=== PATIENT | female | born 1960 | race Caucasian/White ===

== ENCOUNTER 2016-09-05 22:50 | Emergency (ER) | payer BC, MEDICARE ==
[~2016-09-05] VITALS: Ht 165.1 cm; Wt 90.0 kg
[~2016-09-05 22:50] MED LIST: AMITRIPTYLINE H75 M1; AMITRIPTYLINE H75 M1 PO; ANTIVERT 25MG25 MG PO; ASPIRIN 32325 MG/TAB PO; ATIVAN 1MG T1 MG/TAB PO; DEMEROL 50M50 MG/TAB PO; DEPAKOTE500 MG PO; DIABETA 2.5MG2.5 MG PO; DILAUDID 2MG TAB2 MG; FIORICET 325 MG1 TA1 PO; GLUCOPHAGE XR500 M1 PO; GLUCOPHAGE1000 MG PO; KLONOPIN 0.5MG0.5 MG PO; LAMICTAL 100MG100 MG PO; LORTAB 5/500 501 TAB; LORTAB 7.5/5001 TAB; MICRONASE1.25 MG PO; MOBIC15 MG PO; MOTRIN 800800 MG/TAB PO; MS CONTIN 330 MG/TAB; NEURONTIN300 MG/CAP PO; NORCO 325 MG-7.1 TAB PO; PERCOCET 325 MG1 TA2 PO; PHENERGAN 25 TA25 MG PO; PREDNISONE20 MG PO; RESTORIL 77.5 MG/CAP PEG; SOMA 350MG350 MG/TAB PO; XANAX 0.5MG0.5 MG PO; XANAX 1MG1 MG PO; ZOLOFT 100MG100 MG; ZOLOFT 100MG100 MG PO
[2016-09-05 23:44] VITALS: TEMP 97.5
[2016-09-06 00:20] VITALS: BP 120/64; PULSE 79
== END 2016-09-06 00:18 | disposition home or self-care (01) ==
LOC: COL.ER 22:50
DX: S93.402A Sprain of unspecified ligament of left ankle, initial encounter (principal); S80.01XA Contusion of right knee, initial encounter; S80.211A Abrasion, right knee, initial encounter; W01.198A Fall on same level from slipping, tripping and stumbling with subsequent striking against other object, initial encounter

== ENCOUNTER 2016-09-30 21:53 | Emergency (ER) | payer BC, MEDICARE ==
[~2016-09-30] VITALS: Ht 165.1 cm; Wt 84.5 kg
[2016-09-30 21:56] VITALS: TEMP 96.5
[2016-09-30 22:53] LABS: PH 5 (5-8); SQUAMOUS EPITHELIAL None Seen /hpf; URINE APPEARANCE Clear; URINE BACTERIA None Seen /hpf; URINE BILIRUBIN Negative (NEGATIVE); URINE BLOOD Negative (NEGATIVE); URINE COLOR Yellow; URINE GLUCOSE Negative (NEGATIVE); URINE KETONE Negative (NEGATIVE); URINE RBC 0-2 /hpf; URINE UROBILINOGEN Negative (NEGATIVE); URINE WBC None Seen /hpf
[2016-09-30 22:59] LABS: ACETAMINOPHEN < 10 ug/mL (10-30); ANION GAP 14 mmol/L (7-16); BLOOD UREA NITROGEN 16 mg/dL (7-17); CALCIUM 8.9 mg/dL (8.4-10.2); CARBON DIOXIDE 27 mmol/L (22-30); CHLORIDE 99 mmol/L (98-107); CREATININE, serum 0.54 mg/dL (0.52-1.25); GLUCOSE 69 mg/dL (74-106); POTASSIUM 4.1 mmol/L (3.4-5.0); SALICYLATE < 1.0 mg/dL; SODIUM 140 mmol/L (137-145)
[2016-09-30 22:59] LABS: AMPHETAMINE URINE NEGATIVE; BARBITURATES URINE NEGATIVE; BENZODIAZEPINES URINE POSITIVE; BUPRENORPHINE URINE NEGATIVE; METHADONE URINE NEGATIVE; OPIATES URINE POSITIVE; OXYCODONE URINE NEGATIVE; PHENCYCLIDINE URINE NEGATIVE; PROPOXYPHENE URINE NEGATIVE; THC CANNABINOIDS URINE NEGATIVE
[2016-09-30 23:05] LABS: BASO % 0.5 % (0.0-2.0); GRAN # 2.9 (1.4-6.5); GRAN % 39.2 % (42.2-75.2); HEMATOCRIT 38.8 % (37.0-47.0); HEMOGLOBIN 12.5 g/dl (12.5-16.0); LYMPH # 3.6 (1.2-3.4); LYMPH % 48.8 % (20.0-51.0); MEAN CELL VOLUME 90 fl (80.0-100.0); MEAN CORPUSCULAR HEMOGLOBIN 29 pg (27.0-31.0); MEAN CORPUSCULAR HGB CONC 32 g/dl (33.0-37.0); MEAN PLATELET VOLUME 11.7 fl (7.4-10.4); MONO # 0.8 (0.1-0.6); MONO % 11.2 % (1.7-9.3); PLATELET COUNT 174 K/mm3 (130-400); REDCELL DISTRIBUTION WIDTH-CV 14.4 % (11.5-14.5); WHITE BLOOD COUNT 7.3 K/mm3 (4.8-10.8)
[2016-09-30 23:11] LABS: TROPONIN-I < 0.012 ng/mL (0.000-0.034)
[2016-09-30] MEDS ORDERED: ANTIVERT 25MG25 MG PO (23:43)
[2016-10-01 00:25] VITALS: BP 119/77; PULSE 74
== END 2016-10-01 00:30 | disposition home or self-care (01) ==
LOC: COL.ER 21:53
PROVIDERS: Emergency Medicine
DX: H81.399 Other peripheral vertigo, unspecified ear (principal); R51 Headache; F17.210 Nicotine dependence, cigarettes, uncomplicated
CPT/HCPCS: J1885; J2405; J7030

== ENCOUNTER 2016-11-29 22:35 | Emergency (ER) | payer BC, MEDICARE ==
[~2016-11-29] VITALS: Ht 165.1 cm; Wt 81.8 kg
[2016-11-29 22:40] VITALS: TEMP 97.5
[2016-11-29 23:15] LABS: BASO % 0.3 % (0.0-2.0); GRAN # 2.8 (1.4-6.5); GRAN % 42.4 % (42.2-75.2); HEMATOCRIT 41.3 % (37.0-47.0); HEMOGLOBIN 13.3 g/dl (12.5-16.0); LYMPH # 3.2 (1.2-3.4); LYMPH % 48.4 % (20.0-51.0); MEAN CELL VOLUME 91 fl (80.0-100.0); MEAN CORPUSCULAR HEMOGLOBIN 29 pg (27.0-31.0); MEAN CORPUSCULAR HGB CONC 32 g/dl (33.0-37.0); MEAN PLATELET VOLUME 11.4 fl (7.4-10.4); MONO # 0.6 (0.1-0.6); MONO % 8.8 % (1.7-9.3); PLATELET COUNT 185 K/mm3 (130-400); RED BLOOD COUNT 4.56 M/mm3 (4.10-5.30); REDCELL DISTRIBUTION WIDTH-CV 15.1 % (11.5-14.5); WHITE BLOOD COUNT 6.7 K/mm3 (4.8-10.8)
[2016-11-29 23:23] LABS: ADJUSTED CALCIUM 9.3 mg/dL (8.4-10.2); ALANINE AMINOTRANSFERASE 22 U/L (9-52); ALBUMIN 3.7 gm/dL (3.5-5.0); ALKALINE PHOSPHATASE 57 U/L (50-136); ANION GAP 12 mmol/L (7-16); BILIRUBIN,TOTAL 0.5 mg/dL (0.0-1.0); BLOOD UREA NITROGEN 16 mg/dL (7-17); CALCIUM 9.1 mg/dL (8.4-10.2); CARBON DIOXIDE 27 mmol/L (22-30); CHLORIDE 103 mmol/L (98-107); GLUCOSE 114 mg/dL (74-106); POTASSIUM 3.9 mmol/L (3.4-5.0); SODIUM 143 mmol/L (137-145); TOTAL PROTEIN 6.9 gm/dL (6.4-8.2)
[2016-11-29 23:36] LABS: TROPONIN-I < 0.012 ng/mL (0.000-0.034)
[2016-11-30 00:42] LABS: PH 6 (5-8); SQUAMOUS EPITHELIAL None Seen /hpf; URINE APPEARANCE Clear; URINE BACTERIA None Seen /hpf; URINE BILIRUBIN Negative (NEGATIVE); URINE BLOOD Negative (NEGATIVE); URINE COLOR Colorless; URINE GLUCOSE Negative (NEGATIVE); URINE KETONE Negative (NEGATIVE); URINE RBC 0-2 /hpf; URINE UROBILINOGEN Negative (NEGATIVE); URINE WBC None Seen /hpf
[2016-11-30 02:03] VITALS: BP 102/68; PULSE 77
== END 2016-11-30 02:04 | disposition home or self-care (01) ==
LOC: COL.ER 22:35
PROVIDERS: Emergency Medicine
DX: R53.1 Weakness (principal); R42 Dizziness and giddiness; E11.9 Type 2 diabetes mellitus without complications; Z79.84 Long term (current) use of oral hypoglycemic drugs; F32.9 Major depressive disorder, single episode, unspecified; F43.10 Post-traumatic stress disorder, unspecified; G43.909 Migraine, unspecified, not intractable, without status migrainosus; Z86.711 Personal history of pulmonary embolism; M32.9 Systemic lupus erythematosus, unspecified
CPT/HCPCS: J2550; J7030; J7040

== ENCOUNTER 2018-01-02 21:26 | Emergency (ER) | payer BC, MEDICARE ==
[~2018-01-02] VITALS: Ht 165.1 cm; Wt 74.1 kg
[2018-01-02 21:43] VITALS: TEMP 98.6
[2018-01-02 22:35] LABS: BASO % 0.6 % (0.0-2.0); GRAN # 2.4 (1.4-6.5); GRAN % 46.3 % (42.2-75.2); HEMATOCRIT 39.7 % (37.0-47.0); HEMOGLOBIN 13.1 g/dl (12.5-16.0); LYMPH # 2.3 (1.2-3.4); LYMPH % 43.2 % (20.0-51.0); MEAN CELL VOLUME 88 fl (80.0-100.0); MEAN CORPUSCULAR HEMOGLOBIN 29 pg (27.0-31.0); MEAN CORPUSCULAR HGB CONC 33 g/dl (33.0-37.0); MEAN PLATELET VOLUME 11.3 fl (7.4-10.4); MONO # 0.5 (0.1-0.6); MONO % 9.5 % (1.7-9.3); PLATELET COUNT 155 K/mm3 (130-400); RED BLOOD COUNT 4.49 M/mm3 (4.10-5.30); REDCELL DISTRIBUTION WIDTH-CV 13.7 % (11.5-14.5)
[2018-01-02 22:36] LABS: INR 0.9 (0.8-3.0); PROTHROMBIN TIME 10.3 SECONDS (9.7-12.8)
[2018-01-02 22:40] LABS: ALANINE AMINOTRANSFERASE 15 U/L (9-52); ALBUMIN 3.5 gm/dL (3.5-5.0); ALKALINE PHOSPHATASE 62 U/L (50-136); ANION GAP 11 mmol/L (7-16); AST,SGOT 39 U/L (15-37); BILIRUBIN,TOTAL 0.4 mg/dL (0.0-1.0); BLOOD UREA NITROGEN 16 mg/dL (7-17); CALCIUM 8.7 mg/dL (8.4-10.2); CARBON DIOXIDE 26 mmol/L (22-30); CHLORIDE 96 mmol/L (98-107); CREATINE KINASE 26 U/L (30-135); CREATININE, serum 0.54 mg/dL (0.52-1.25); GLUCOSE 77 mg/dL (74-106); POTASSIUM 4.4 mmol/L (3.4-5.0); SODIUM 133 mmol/L (137-145)
[2018-01-02 22:52] LABS: TROPONIN-I < 0.012 ng/mL (0.000-0.034)
[2018-01-02 22:56] LABS: PROLACTIN 9.4 ng/mL (3.0-18.6)
[2018-01-02 23:27] LABS: COLLECTION METHOD CATHETER
[2018-01-02 23:32] LABS: MUCOUS Present /lpf; PH 6 (5-8); SQUAMOUS EPITHELIAL None Seen /hpf; URINE APPEARANCE Clear; URINE BACTERIA None Seen /hpf; URINE BILIRUBIN Negative (NEGATIVE); URINE BLOOD Negative (NEGATIVE); URINE COLOR Yellow; URINE GLUCOSE Negative (NEGATIVE); URINE KETONE Trace (NEGATIVE); URINE LEUKOCYTE ESTERASE Negative (NEGATIVE); URINE NITRATE Negative (NEGATIVE); URINE PROTEIN(semi-quant) Negative (NEGATIVE); URINE RBC 0-2 /hpf; URINE UROBILINOGEN Negative (NEGATIVE)
[2018-01-03 00:56] VITALS: BP 103/63
[2018-01-03 02:08] VITALS: PULSE 62
== END 2018-01-03 02:05 | disposition home or self-care (01) ==
LOC: COL.ER 21:26
PROVIDERS: Emergency Medicine
DX: R56.9 Unspecified convulsions (principal); E11.9 Type 2 diabetes mellitus without complications; F17.210 Nicotine dependence, cigarettes, uncomplicated; G43.909 Migraine, unspecified, not intractable, without status migrainosus; F43.10 Post-traumatic stress disorder, unspecified; Z79.84 Long term (current) use of oral hypoglycemic drugs; Z90.49 Acquired absence of other specified parts of digestive tract; Z98.890 Other specified postprocedural states; Z79.82 Long term (current) use of aspirin
CPT/HCPCS: J2060; J7030